=== PATIENT | male | born 1970 ===

== ENCOUNTER → 2021-04-30 10:53 | Outpatient (BNVA) | payer OTHER, SELFPAY | PROVIDERS: Family Provider Family Medicine; Visit Provider Internal Medicine | DX: E11.65 Type 2 diabetes mellitus with hyperglycemia (principal); E11.649 Type 2 diabetes mellitus with hypoglycemia without coma; E78.5 Hyperlipidemia, unspecified; Z79.4 Long term (current) use of insulin | CPT/HCPCS: 99204 ==

== ENCOUNTER 2021-04-30 12:07 | Outpatient (CLI) | payer OTHER, SELFPAY ==
[2021-04-30 13:08] LABS: Estmated Average Glucose 212
== END 2021-04-30 12:08 | disposition home or self-care (01) ==
LOC: LAB 12:12
PROVIDERS: PCP Physician Assistant; Visit Provider Internal Medicine
DX: E11.65 Type 2 diabetes mellitus with hyperglycemia (principal)
CPT/HCPCS: 36415; 83036

== ENCOUNTER → 2021-05-14 10:11 | Outpatient (BNVA) | payer OTHER, SELFPAY | PROVIDERS: PCP Physician Assistant; Visit Provider Internal Medicine | DX: E11.65 Type 2 diabetes mellitus with hyperglycemia (principal); E11.649 Type 2 diabetes mellitus with hypoglycemia without coma; E78.5 Hyperlipidemia, unspecified; Z79.4 Long term (current) use of insulin | CPT/HCPCS: 99213 ==

== ENCOUNTER → 2021-05-28 12:36 | Outpatient (BNVA) | payer OTHER, SELFPAY | PROVIDERS: PCP Physician Assistant; Visit Provider Internal Medicine | DX: E11.65 Type 2 diabetes mellitus with hyperglycemia (principal); E11.649 Type 2 diabetes mellitus with hypoglycemia without coma; E78.5 Hyperlipidemia, unspecified; Z79.4 Long term (current) use of insulin | CPT/HCPCS: 99213 ==